=== PATIENT | male | born 1990 | race Caucasian/White ===

== ENCOUNTER 2017-02-26 22:02 | Emergency (ER) | payer BC ==
[~2017-02-26] VITALS: Ht 188 cm; Wt 111.4 kg
[2017-02-26] MEDS ORDERED: NS 1,000 ML IV ONE (22:30)
[2017-02-26 23:00] LABS: BASO # 0.1 10^3/uL (0.0-0.2); BASO % 0.7 % (0.0-1.0); EOS # 0.1 10^3/uL (0.0-0.50); EOS % 1.2 % (0.0-3.0); IMMATURE GRANULOCYTE % 0.3 % (0-0); LYMPH # 1.5 10^3/uL (1.5-6.5); LYMPH % 12.9 % (24.0-44.0); MEAN CORPUSCULAR HEMOGLOBIN 29.9 pg (27.0-33.0); MEAN CORPUSCULAR HGB CONC 34.1 g/dl (32.0-36.5); MEAN CORPUSCULAR VOLUME 87.7 fl (80.0-96.0); MONO # 0.8 10^3/uL (0.0-0.8); MONO % 6.7 % (0.0-5.0); NEUTROPHILS # 9.3 10^3/uL (1.8-7.7); NEUTROPHILS % 78.2 % (36.0-66.0); PLATELET COUNT, AUTOMATED 312 10^3/uL (150-450); RED CELL DISTRIBUTION WIDTH 12.2 % (11.5-14.5); WHITE BLOOD COUNT 11.9 10^3/uL (4.0-10.0)
[2017-02-26 23:19] LABS: METHADONE URINE NEGATIVE (NEGATIVE)
[2017-02-26] MEDS ORDERED: OXAZEPAM 15 MG CAP PO ONE (23:30)
[2017-02-26 23:31] LABS: ALBUMIN 4.2 GM/DL (3.2-5.2); ALBUMIN/GLOBULIN RATIO 1.17 (1.00-1.93); ALKALINE PHOSPHATASE 50 U/L (45-117); ALT/SGPT 38 U/L (12-78); ANION GAP 5 MEQ/L (8-16); AST/SGOT 21 U/L (7-37); BILIRUBIN,DIRECT 0.2 MG/DL (0.0-0.2); BILIRUBIN,TOTAL 0.5 MG/DL (0.2-1.0); BLOOD UREA NITROGEN 9 MG/DL (7-18); CALCIUM LEVEL 8.8 MG/DL (8.5-10.1); CARBON DIOXIDE LEVEL 33 MEQ/L (21-32); CHLORIDE LEVEL 103 MEQ/L (98-107); CREATININE FOR GFR 0.97 MG/DL (0.70-1.30); GLOMERULAR FILTRATION RATE > 60.0 (>60); GLUCOSE, FASTING 90 MG/DL (70-105); POTASSIUM SERUM 4.2 MEQ/L (3.5-5.1); SODIUM LEVEL 141 MEQ/L (136-145); TOTAL PROTEIN 7.8 GM/DL (6.4-8.2)
[2017-02-27 01:57] VITALS: BP 142/82
--- NOTE | 2017-02-27 06:37 | ECGEPIP ---
Stationary ECG Study [facility] - ED Test Date: 2017-02-26 Pat Name: SILVIA ABERNATHY Department: Room: - Gender: M [employer]: rn : 1990 Requested By: KIKI SHANE Order Number: [id number] Reading MD: Rajeev Harry Measurements Intervals [place] Rate: 109 P: 59 IL: 171 QRS: 56 QRSD: 106 T: 36 QT: 329 QTc: 443 Interpretive Statements SINUS TACHYCARDIA ABNORMAL RHYTHM ECG NO OLD ECGS FOR COMPARISON Electronically Signed On 02-27-2017 6:37:13 EST by Rajeev Harry
== END 2017-02-27 01:59 | disposition home or self-care (01) ==
LOC: M ED 22:02 → EDBD 22:02 → M ED 02-27 01:59
DX: T40.1X1A Poisoning by heroin, accidental (unintentional), initial encounter (principal); Y92.9 Unspecified place or not applicable; Y93.9 Activity, unspecified; F10.10 Alcohol abuse, uncomplicated; R00.0 Tachycardia, unspecified; R94.31 Abnormal electrocardiogram [ECG] [EKG]; F32.9 Major depressive disorder, single episode, unspecified
CPT/HCPCS: 36415; 80048; 80076; 80307; 82550; 83605; 83930; 84443; 85025; 93005; 93041; 94760; 99285; G0480